=== PATIENT | female | born 1960 | race African-American/Black ===

== ENCOUNTER 2018-02-03 21:17 | Emergency (ER) | payer OTHER ==
[~2018-02-03] VITALS: Ht 162.6 cm; Wt 97.5 kg
[2018-02-03] MEDS ORDERED: MAGIC MOUTHWASH SWISH&SPIT (21:28)
[2018-02-03 22:05] VITALS: BP 128/99
== END 2018-02-03 22:06 | disposition home or self-care (01) ==
LOC: ER 21:17
DX: K08.89 Other specified disorders of teeth and supporting structures (principal); E11.9 Type 2 diabetes mellitus without complications; I10 Essential (primary) hypertension; F32.9 Major depressive disorder, single episode, unspecified